=== PATIENT | male | born 1965 | race Caucasian/White ===

== ENCOUNTER 2017-03-13 23:04 | Emergency (ER) | payer SELFPAY ==
[~2017-03-13] VITALS: Ht 175.3 cm; Wt 81.6 kg
[2017-03-13] MEDS ORDERED: AMLO-99 PO (23:06)
[2017-03-13] MEDS ORDERED: fentaNYL CITR 100 MCG/2 ML AMP IVP ONE (23:10)
--- NOTE | 2017-03-13 23:23 | ER Report ---
History and Physical Time Seen By MD: 11:12 (03/13/17) Hx. of Stated Complaint: PT REPRORTS THAT HE DEVELOPED RIGHT UPPER QUAD PAIN TODAY WITH VOMITING ALL DAY LONG. 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 No known association with food last bowel movement was this morning. Denies diarrhea or bloody stools. No fevers or skin color changes that he is aware of. He reports he has been vomiting all day long. REVIEW OF SYSTEMS: Constitutional: No fever, no chills. Eyes: No discharge. ENT: No sore throat. Cardiovascular: No chest pain, no palpitations. Respiratory: No cough, no shortness of breath. Gastrointestinal: No hematemesis Genitourinary: No hematuria. Musculoskeletal: No back pain. Skin: No rashes. Neurological: No headache. Allergies: Coded Allergies: No Known Drug Allergies (Unverified , 03/13/17) Home Meds Reported Medications Amlodipine Besylate (AMLODIPINE BESYLATE) 10 Mg Tablet, 1 TAB PO QDAY, TAB 03/13/17 Hx Substance Use Disorder: No Hx Alcohol Use: No Constitutional Vital Sign - Last 24 Hours 03/13/17 23:06 Temp 98.2 Pulse 69 Resp 16 B/P (MAP) 129/87 Pulse Ox 97 O2 Delivery Room Air Physical Exam General Appearance: Patient appears to be in acute distress. No jaundice. Nontoxic appearing. Distress is due to pain and anxiety. Eyes: Pupils equal and round no pallor or injection. No icterus ENT, Mouth: Mucous membranes are moist. Respiratory: There are no retractions, lungs are clear to auscultation. Cardiovascular: Regular rate and rhythm. No murmurs gallops or rubs Gastrointestinal: Abdomen is severely tender right upper quadrant moderately tender midepigastric area and otherwise non tender, no masses, bowel sounds normal. Positive Disla sign. Neurological: Normal gross neuro exam Skin: Warm and dry, no rashes. Musculoskeletal: Neck is supple non tender. Extremities are nontender, nonswollen and have full range of motion. No edema DIFFERENTIAL DIAGNOSIS: After history and physical exam differential diagnosis was considered for gastritis, gastroparesis, duodenitis, ulcer, gallstones, cholelithiasis, choledocholithiasis. This is an incomplete list of diagnoses considered. Medical Decision Making Data Points Result Diagram: 03/13/17225503/13/172255 Laboratory Hematology Test 03/13/17 22:56 Red Blood Count 6.05 M/uL (4.00-5.60) Mean Corpuscular Volume 89.0 fL (80.0-96.0) Mean Corpuscular Hemoglobin 30.1 pg (26.0-33.0) Mean Corpuscular Hemoglobin Concent 33.8 g/dL (32.0-36.0) Red Cell Distribution Width 13.8 % (11.5-14.5) Mean Platelet Volume 7.2 fL (7.2-11.1) Neutrophils (%) (Auto) 89.4 % (39.4-72.5) Lymphocytes (%) (Auto) 6.1 % (17.6-49.6) Monocytes (%) (Auto) 2.9 % (4.1-12.4) Eosinophils (%) (Auto) 0.2 % (0.4-6.7) Basophils (%) (Auto) 1.4 % (0.3-1.4) Nucleated RBC Relative Count (auto) 0.0 /100WBC Neutrophils # (Auto) 11.3 K/uL (2.0-7.4) Lymphocytes # (Auto) 0.8 K/uL (1.3-3.6) Monocytes # (Auto) 0.4 K/uL (0.3-1.0) Eosinophils # (Auto) 0.0 K/uL (0.0-0.5) Basophils # (Auto) 0.2 K/uL (0.0-0.1) Nucleated RBC Absolute Count (auto) 0.00 K/uL Peripheral Blood Smear Yes Y/N Sodium Level 140 mmol/L (137-145) Potassium Level 2.9 mmol/L (3.5-5.0) Chloride Level 100 mmol/L (98-107) Carbon Dioxide Level 27 mmol/L (22-30) Blood Urea Nitrogen 12 mg/dl (9-21) Creatinine 1.10 mg/dl (0.66-1.25) Glomerular Filtration Rate Calc > 60.0 Random Glucose 142 mg/dl (75-110) Calcium Level 9.3 mg/dl (8.4-10.2) Total Bilirubin 2.0 mg/dl (0.2-1.3) Aspartate Amino Transf (AST/SGOT) 463 U/L (0-35) Alanine Aminotransferase (ALT/SGPT) 514 U/L (0-56) Alkaline Phosphatase 189 U/L (0-126) Troponin I < 0.012 ng/ml Total Protein 8.6 gm/dl (6.3-8.2) Albumin 4.5 g/dl (3.5-5.0) Lipase 75255 U/L (23-300) Chemistry Test 03/13/17 22:56 White Blood Count 12.6 k/uL (4.5-11.0) Red Blood Count 6.05 M/uL (4.00-5.60) Hemoglobin 18.2 g/dL (14.0-18.0) Hematocrit 53.9 % (42.0-52.0) Mean Corpuscular Volume 89.0 fL (80.0-96.0) Mean Corpuscular Hemoglobin 30.1 pg (26.0-33.0) Mean Corpuscular Hemoglobin Concent 33.8 g/dL (32.0-36.0) Red Cell Distribution Width 13.8 % (11.5-14.5) Platelet Count 266 K/uL (150-450) Mean Platelet Volume 7.2 fL (7.2-11.1) Neutrophils (%) (Auto) 89.4 % (39.4-72.5) Lymphocytes (%) (Auto) 6.1 % (17.6-49.6) Monocytes (%) (Auto) 2.9 % (4.1-12.4) Eosinophils (%) (Auto) 0.2 % (0.4-6.7) Basophils (%) (Auto) 1.4 % (0.3-1.4) Nucleated RBC Relative Count (auto) 0.0 /100WBC Neutrophils # (Auto) 11.3 K/uL (2.0-7.4) Lymphocytes # (Auto) 0.8 K/uL (1.3-3.6) Monocytes # (Auto) 0.4 K/uL (0.3-1.0) Eosinophils # (Auto) 0.0 K/uL (0.0-0.5) Basophils # (Auto) 0.2 K/uL (0.0-0.1) Nucleated RBC Absolute Count (auto) 0.00 K/uL Peripheral Blood Smear Yes Y/N Glomerular Filtration Rate Calc > 60.0 Calcium Level 9.3 mg/dl (8.4-10.2) Total Bilirubin 2.0 mg/dl (0.2-1.3) Aspartate Amino Transf (AST/SGOT) 463 U/L (0-35) Alanine Aminotransferase (ALT/SGPT) 514 U/L (0-56) Alkaline Phosphatase 189 U/L (0-126) Troponin I < 0.012 ng/ml Total Protein 8.6 gm/dl (6.3-8.2) Albumin 4.5 g/dl (3.5-5.0) Lipase 57809 U/L (23-300) ED Course/Re-evaluation ED Course 03/14/2017 12:36:27 am surgery was consulted Dr. Chin recommends transfer for ERCP. He has reviewed case and labs as well as imaging. ERCP not available at this facility. Patient states he would prefer to go to [place] rather than [facility] after discussion with GI at [facility] Transfer center at [place] was then contacted. Pain and nausea well- controlled at this time. 03/14/2017 1:10:48 am : Biometric Fingerprinting Technician gastroenterology doctor Pop, case discussed. Hospitalist consulted for admission accepted by . Decision to Disposition Date: Mar 14, 2017 Decision to Disposition Time: 00:37 Depart Departure Latest Vital Signs Vital Signs Date Time Temp Pulse Resp B/P (MAP) Pulse Ox O2 Delivery O2 Flow Rate FiO2 03/13/17 23:06 98.2 69 16 129/87 97 Room Air Impression: Primary Impression: Acute gallstone pancreatitis Condition: Improved Disposition: [facility] RAAD DURANT MD Mar 13, 2017 23:23
[2017-03-13 23:35] LABS: PLATELET COUNT, AUTOMATED 266 K/uL (150-450)
[2017-03-13] MEDS ORDERED: NS(*) 0.9% 1000 ML BAG 1,000 ML IV ONE (23:55)
[2017-03-13] MEDS ORDERED: MORPHINE 4 MG/ML SYR IVP ONE (23:55)
[2017-03-13] MEDS ORDERED: KCL (*) 20 MEQ/100 ML PREMIX 100 ML IV ONE (23:55)
--- NOTE | 2017-03-14 00:53 | RADIOLOGY IMAGING REPORT ---
FACILITY: [facility] - [place] PATIENT NAME: Segun Oliveira : 1965 MR: [id number] V: [id number] EXAM DATE: ORDERING PHYSICIAN: RAAD DURANT TECHNOLOGIST: Location: [facility] [place] Patient: Segun Oliveira : 1965 Visit/Account:[id number] Date of Sevice: 03/13/2017 GALLBLADDER HISTORY: Abdominal pain, nausea, and vomiting for one day. COMPARISON: None. FINDINGS: Pancreas: Normal. Upper abdominal aorta and IVC: Aorta and IVC are patent by color Doppler and are unremarkable. The mi d aorta is 2.4 cm in cross-section. Liver: The liver is diffusely echogenic, compatible with hepatic steatosis. There are areas of low at tenuation at the gallbladder fossa that are likely focal fatty sparing. The portal vein is patent wit h normal hepatopetal flow. Hepatic vein is patent. Gallbladder: There are multiple stones within the gallbladder. No pericholecystic fluid. Gallbladder wall is mildly thickened, measuring 4 mm. There are comet tail artifacts from the gallbladder wall, c ompatible with hyperplastic cholecystosis (adenomyomatosis). This can cause gallbladder wall thickeni ng. Positive sonographic Disla sign. Common duct: Normal measuring 4 mm. Right kidney: Normal in size and echogenicity. It measures 10.3 x 5.0 x 5.1 cm. No hydronephrosis. Ascites: None. IMPRESSION: 1. There are cholelithiasis and a positive sonographic Disla sign. In the appropriate clinical setti ng, findings may reflect cholecystitis. 2. Adenomyomatosis of the gallbladder. 3. Hepatic steatosis. It can progress to steatohepatitis and eventual cirrhosis. Report Dictated By: Rianna Mcdowell at 03/14/2017 12:43 AM Report E-Signed By: Rianna Mcdowell at 03/14/2017 12:49 AM WSN:[id number]
[2017-03-14] MEDS ORDERED: MORPHINE 4 MG/ML SYR IVP ONE (01:35)
[2017-03-14 02:00] VITALS: BP 133/97
== END 2017-03-14 02:12 | disposition short-term general hospital (02) ==
LOC: ER 23:10
DX: K85.10 Biliary acute pancreatitis without necrosis or infection (principal)
CPT/HCPCS: 76705; 83690; 84484; 85025; 96365; 96366; 96375; 96376; 99285; J2270; J3010; J3480; J7030; 82040; 82247; 82310; 82374; 82435; 82565; 82947; 84075; 84132; 84155; 84295; 84450; 84460; 84520

== ENCOUNTER → 2017-03-13 | Outpatient (CLI) | payer SELFPAY ==
[~2017-03-13] MED LIST: AMLO-99 PO
== END ==
LOC: AMB 22:46
PROVIDERS: ATTEND Nurse Practitioner
DX: R10.11 Right upper quadrant pain (principal); R11.10 Vomiting, unspecified
CPT/HCPCS: A0425; A0427

== ENCOUNTER → 2017-03-14 | Outpatient (CLI) | payer SELFPAY | LOC: AMB 02:01 | PROVIDERS: ATTEND Nurse Practitioner | DX: K82.9 Disease of gallbladder, unspecified (principal); R10.9 Unspecified abdominal pain | CPT/HCPCS: A0425; A0426 ==